=== PATIENT | male | born 1980 | race Hispanic/Latino ===

== ENCOUNTER 2020-03-04 19:13 | Emergency (ER) | payer OTHER, SELFPAY ==
[~2020-03-04] VITALS: Ht 162.6 cm; Wt 75.7 kg
[2020-03-04] MEDS ORDERED: IBUP200C27 PO (19:28)
[2020-03-04] MEDS ORDERED: ONDANSETRON 4MG/2ML VIAL IV ONE (19:45)
[2020-03-04] MEDS ORDERED: MORPHINE 4 MG/ML 1ML VIAL/SYRINGE (J2270) IV ONE (19:45)
[2020-03-04] MEDS ORDERED: MORPHINE 4 MG/ML 1ML VIAL/SYRINGE (J2270) IV PRN (20:00)
[2020-03-04] MEDS ORDERED: ARTH650T23 PO (21:18)
[2020-03-04] MEDS ORDERED: NAPR-837 PO (21:18)
[2020-03-04] MEDS ORDERED: HYDR-3713 PO (21:18)
[2020-03-04] MEDS ORDERED: NAPROXEN 250 MG TAB PO ONE (21:30)
[2020-03-04] MEDS ORDERED: NORCO 5/325MG TABLET (BULK FOR ED) PO ONE (21:30)
[2020-03-04 22:15] VITALS: BP 128/80
--- NOTE | 2020-03-05 11:28 | REP ---
INDICATION: cow pushed him inti steel bar COMPARISON: None. TECHNIQUE: Three views right shoulder. FINDINGS: No fracture is seen. There is elevation of the distal end of the clavicle with respect to the acromion consistent with acromioclavicular joint separation. The distance between the coracoid process and the adjacent clavicle is approximately 19 mm, normal is 10-13 mm. Therefore there is not only injury to the acromioclavicular ligament but also the coracoclavicular ligament. IMPRESSION: Findings of AC joint separation with injury to the acromioclavicular and coracoclavicular ligaments. No fracture. A preliminary report was provided by [facility] at the time of the exam. <Electronically signed by Ian Yanez > 03/05/20 112
--- NOTE | 2020-03-05 11:29 | REP ---
INDICATION: cow pushed him inti steel bar. COMPARISON: None. TECHNIQUE: Two views right clavicle. FINDINGS: No fracture is seen. There is elevation of the distal end of the clavicle above the acromion. There is increased space between the coracoid process and clavicle. IMPRESSION: Findings compatible with AC joint separation with injury to the acromioclavicular and coracoclavicular ligaments. No fracture. A preliminary report was provided by [facility] at the time of the exam. <Electronically signed by Ian Yanez > 03/05/20 1024
== END 2020-03-04 22:23 | disposition home or self-care (01) ==
LOC: M ED 19:13
DX: S43.51XA Sprain of right acromioclavicular joint, initial encounter (principal); W55.22XA Struck by cow, initial encounter; Y92.71 Barn as the place of occurrence of the external cause; Y93.K2 Activity, milking an animal; Y99.0 Civilian activity done for income or pay; Z79.899 Other long term (current) drug therapy
CPT/HCPCS: 73000; 73030; 96374; 96375; 96376; 99284; J2270; J2405

== ENCOUNTER 2020-04-12 10:17 | Outpatient (RCR) | payer OTHER ==
[~2020-04-12 10:17] MED LIST: ARTH650T23 PO; HYDR-3713 PO; IBUP200C27 PO; NAPR-837 PO
== END 2020-04-15 ==
LOC: M PT 10:17
PROVIDERS: ATTEND Orthopaedic Surgery Sports Medicine
DX: S43.111D Subluxation of right acromioclavicular joint, subsequent encounter (principal)